=== PATIENT | female | born 1950 | race Caucasian/White ===

== ENCOUNTER 2016-10-10 12:10 | Day surgery (SDC) | payer MEDICARE, OTHER ==
[2016-10-10] MEDS ORDERED: Glycopyrrolate 0.2 MG/ML 2 ML SYRINGE IVPUSH ONE (12:18)
[2016-10-10] MEDS ORDERED: Cyanocobalamin (Vitamin B12) 1,000 MCG/ML SDV IM ONE (12:18)
[2016-10-10] MEDS ORDERED: Lactated Ringers 1,000 ML IV ONE (12:30)
[2016-10-10] MEDS ORDERED: MVI, Adult with Vitamin K 10 ML, Thiamine 200 MG, Chromium/Copper/Mang/Selen/Zn 1 ML in... IV ONE ×4 (13:15)
[2016-10-10] MEDS ORDERED: Propofol 200 MG/20 ML SDV ONE (14:02)
[2016-10-10] MEDS ORDERED: fentaNYL 100 MCG/2 ML SDV ONE (14:03)
[2016-10-10] MEDS ORDERED: Pantoprazole 40 MG Vial IVPUSH ONE (14:14)
[2016-10-10] MEDS ORDERED: Fluconazole/Normal Saline 400 MG in Premix Bag 200 BAG IV ONE (14:30)
[2016-10-10] MEDS ORDERED: Alum Hydrox/Mag Hydrox/Simeth 360 ML, Lidocaine 2% 60 ML PO SCH ×2 (16:00)
[2016-10-10 16:54] VITALS: BP 117/68
--- NOTE | 2016-10-14 14:38 | OR ---
DATE OF PROCEDURE: 10/10/2016 PREOPERATIVE DIAGNOSES: Dysphagia, status post Levy-en-Y gastric bypass with history of possible large foreign body. 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 OPERATIVE PROCEDURE: Upper GI endoscopy. ANESTHESIA: IV sedation. INDICATION FOR PROCEDURE: This is a 66-year-old status post Levy-en-Y gastric bypass, presenting with apparently fish getting caught in her either gastric pouch or her distal esophagus. This happened several days ago and she has been unable to swallow much. In the meantime, plan is to proceed with an upper GI endoscopy with biopsies and/or dilation as indicated. Potential risks including bleeding and perforation were discussed, and the patient wishes to proceed. DETAILS OF PROCEDURE: The patient was taken to the operating room and placed in a left lateral decubitus position. IV sedation was administered, after which the upper GI endoscope was passed orally through the length of the esophagus, through the gastric pouch and gastrojejunostomy roughly 20 cm into the Levy limb. The patient was noted to have no retained foreign body in the esophagus at this time but had a very striking esophagitis with apparent fungal overgrowth circumferentially over the distal 4-5 cm of the esophagus leading up to the area of the gastric pouch. The gastric pouch itself was unremarkable as were the gastrojejunostomy and the visualized portion of the Levy limb. The overall impression was that of severe esophagitis with associated fungal overgrowth. I suspect this was initiated with the food being lodged in that area for a period of time. No biopsy was felt to be warranted and the scope withdrawn, and the procedure then concluded. The patient was taken to the recovery room in satisfactory condition. The patient will be given Protonix 40 mg IV in the recovery room along with Diflucan 400 mg IV piggyback, start this afternoon and then she will be discharged home with Protonix 40 mg q. day x30 days, Mycostatin swish and swallow 5 mL q.i.d. x7 days, along with two ounces of Xylocaine mixed with ounces of Mylanta to take p.r.n. prior to eating. She will be instructed to stay on a liquid diet for 5 days and call if she is not able to maintain adequate oral intake. She will be following up with Mitra Guardado in 1 week. Austin Ford MD /[id number]
== END 2016-10-10 17:25 | disposition home or self-care (01) ==
LOC: JP.SDS 12:10
PROVIDERS: ATTEND Surgery
DX: B37.81 Candidal esophagitis (principal); I10 Essential (primary) hypertension; K21.9 Gastro-esophageal reflux disease without esophagitis; J45.909 Unspecified asthma, uncomplicated; Z88.8 Allergy status to other drugs, medicaments and biological substances; Z98.84 Bariatric surgery status
CPT/HCPCS: 43235; A9270; C9113; J1450; J1642; J2704; J3010; J3411; J3420; J7120

== ENCOUNTER 2016-10-25 09:43 | Day surgery (SDC) | payer MEDICARE, OTHER ==
[~2016-10-25 09:43] MED LIST: Midazolam 1 MG/ML 2 ML SDV ONE; Propofol 200 MG/20 ML SDV ONE; fentaNYL 100 MCG/2 ML SDV ONE
[2016-10-25] MEDS ORDERED: Lactated Ringers 1,000 ML IV ONE (09:45)
[2016-10-25] MEDS ORDERED: MVI, Adult with Vitamin K 10 ML, Thiamine 200 MG, Chromium/Copper/Mang/Selen/Zn 1 ML in... IV ONE ×4 (09:45)
[2016-10-25] MEDS ORDERED: Glycopyrrolate 0.2 MG/ML 2 ML SYRINGE IVPUSH ONE (10:15)
[2016-10-25] MEDS ORDERED: Cyanocobalamin (Vitamin B12) 1,000 MCG/ML SDV IM ONE (10:15)
[2016-10-25] MEDS ORDERED: Fluconazole 100 MG Tab PO ONE (11:53)
[2016-10-25 13:38] VITALS: BP 112/63
--- NOTE | 2016-10-29 13:08 | OR ---
DATE OF PROCEDURE: 10/25/2016 PREOPERATIVE DIAGNOSIS: Dysphagia associated with recent history of distal esophageal ulceration. POSTOPERATIVE DIAGNOSES: 1. Persistent distal esophageal ulcer (markedly improved from previous endoscopy). 2. Mild stricture of gastrojejunostomy. OPERATIVE PROCEDURE: Upper GI endoscopy with: 1. Dilation of gastrojejunostomy (45780). 2. Biopsies of esophageal ulcer (14924). ANESTHESIA: IV sedation. INDICATION FOR PROCEDURE: The patient presents with some persistent dysphagia. She recently was noted to have striking distal esophagitis with yeast overgrowth. She has been on Protonix 40 mg a day and also completed earlier a course of Diflucan. Plan is to proceed with a repeat endoscopy with biopsies or dilation as indicated. Potential risks including bleeding and perforation were discussed, and the patient wishes to proceed. DETAILS OF PROCEDURE: The patient was taken to the operating room and placed in the left lateral decubitus position. IV sedation was administered, after which the upper GI endoscope was passed orally through the length of the esophagus into the gastric pouch and from there roughly 20 cm into the Levy limb. Findings included a normal upper esophagus. At the EG junction, there was a persistent ulcer located, beginning at the esophagogastric junction and extending roughly 2 cm proximally. This was covered with some fibrinous exudate. Possibly, there was some fungal overgrowth. Beyond that, the gastric pouch itself was unremarkable. There was a slight stricturing of the gastrojejunostomy, and the visualized portion of the Levy limb was unremarkable. At this point, the gastrojejunostomy was dilated with a 54-[place] balloon dilator. This did result in some increased luminal diameter. The balloon catheter was then removed, and then biopsies were obtained from the esophageal ulcer to rule out a problem such as Lawrence esophagus. This would also give us some idea whether or not there is some persistent fungal overgrowth. Minimal bleeding from the biopsy site was seen, and the procedure was then concluded. The plan will be to continue the Protonix, and we will give her a course of Diflucan for the next 5 days, after an IV dose was given today. Additionally, she will be set up for followup with Mitra Guardado at [facility] in about 2 weeks. Austin Ford MD /[id number]
== END 2016-10-25 13:55 | disposition home or self-care (01) ==
LOC: JP.SDS 09:43
PROVIDERS: ATTEND Surgery
PROC: 0D768ZZ Dilation of Stomach, Via Natural or Artificial Opening Endoscopic (ICD-10-PCS; principal; 2016-10-25)
PROC: 0DB58ZX Excision of Esophagus, Via Natural or Artificial Opening Endoscopic, Diagnostic (ICD-10-PCS; 2016-10-25)
DX: R13.10 Dysphagia, unspecified (principal); K91.89 Other postprocedural complications and disorders of digestive system; K22.10 Ulcer of esophagus without bleeding; B37.81 Candidal esophagitis
CPT/HCPCS: 43239; 43245; 88305; 88312; A9270; J2250; J2704; J3010; J3411; J3420; J7120

== ENCOUNTER 2020-02-12 13:43 | Emergency (ER) | payer MEDICARE, OTHER ==
[2020-02-12] MEDS ORDERED: ClonazePAM 0.5 MG Tab PO ONE (14:20)
--- NOTE | 2020-02-12 14:20 | EDM.PDOC ---
ED HPI GENERAL MEDICAL PROBLEM - General Chief Complaint: Cardiovascular Problem Stated Complaint: POSSIBLE HEART ATTACK Time Seen by Provider: 02/12/20 13:58 Source of Information: Reports: Patient, Family, RN Notes Reviewed, Other (recent records) History Limitations: Reports: No Limitations - History of Present Illness INITIAL COMMENTS - FREE TEXT/NARRATIVE: Zeina presents today with complaints of high blood pressure and heart rate all morning today. She states she was checking her blood pressure every 5 minutes and it kept saying the heart rate was high and her blood pressure would be high then low. She denies chest pain, SOB, difficulty breathing, dizziness, syncope. Wrist cuff used at home. She denies chest pain, SOB, difficulty breathing, cough, fever, chills, or other concerns. - Related Data Allergies Allergy/AdvReac Type Severity Reaction Status Date / Time amitriptyline Allergy Cannot Verified 02/12/20 13:55 Remember Home Meds: Home Meds ARIPiprazole [Abilify] 15 mg PO DAILY 10/10/16 [History] Acyclovir [Zovirax] 400 mg PO BID 10/10/16 [History] Aspirin [Adult Low Dose Aspirin EC] 81 mg PO DAILY 10/10/16 [History] Cyanocobalamin (Vitamin B-12) [Vitamin B-12] 1,000 mcg BUCCAL DAILY 10/10/16 [History] DULoxetine HCl [Cymbalta] 120 mg PO DAILY 10/10/16 [History] Furosemide [Lasix] 40 mg PO BID 10/10/16 [History] Levothyroxine Sodium [Synthroid] 150 mcg PO QAM 10/10/16 [History] Metolazone [Zaroxolyn] 2.5 mg PO DAILY 10/10/16 [History] Montelukast [Singulair] 10 mg PO BEDTIME 10/10/16 [History] Potassium Chloride [Klor-Con M20] 40 meq PO TID 10/10/16 [History] clonazePAM [Klonopin] 0.5 mg PO BID 10/10/16 [History] lamoTRIgine [Lamictal] 200 mg PO BID 10/10/16 [History] Pantoprazole Sodium [Protonix] 40 mg PO DAILY 10/25/16 [History] Past Medical History HEENT History: Reports: Impaired Vision, Macular Degeneration Other HEENT History: wears glasses; right eye blind, left eye macular degeneration Cardiovascular History: Reports: Heart Failure, Heart Murmur, Hypertension Respiratory History: Reports: Asthma, Pneumonia, Recurrent, Other (See Below) Other Respiratory History: bronchiol cystosis; wears cystic fibrosis vest TID Gastrointestinal History: Reports: Chronic Constipation Genitourinary History: Reports: None CLIENT ADVOCATE History: Reports: Musculoskeletal History: Reports: Neck Pain, Chronic Psychiatric History: Reports: Anxiety, Bipolar, Depression, Psych Hospi talization(s), Schizophrenia, Suicide Attempt Endocrine/Metabolic History: Reports: Hypothyroidism, Vitamin D Deficiency Hematologic History: Reports: B12 Deficiency Immunologic History: Reports: Immunosuppression Oncologic (Cancer) History: Reports: Other (See Below) Other Oncologic History: Follicular lymphoma, non-Hodgkin's Stage III - Infectious Disease History Infectious Disease History: Reports: Chicken Pox, Mumps, Shingles - Past Surgical History HEENT Surgical History: Reports: Laser Surgery, Oral Surgery Respiratory Surgical History: Reports: Other (See Below) GI Surgical History: Reports: Appendectomy, Bariatric Procedure, Cholecystectomy, Colonoscopy, EGD Female Surgical History: Reports: Breast Biopsy, Tubal Ligation, Other (See Below) Musculoskeletal Surgical History: Reports: Carpal Tunnel, Knee Replacement, Other (See Below) Oncologic Surgical History: Reports: Biopsy of Breast, Lumpectomy Dermatological Surgical History: Reports: None Social & Family History - Tobacco Use Smoking Status *Q: Never Smoker - Caffeine Use Caffeine Use: Reports: Tea ED ROS GENERAL - Review of Systems Review Of Systems: See Below Constitutional: Reports: Weakness, Decreased Appetite, Weight Loss. Denies: Fever, Chills, Malaise, Night Sweats, Diaphoresis, Weight Gain HEENT: Reports: No Symptoms Respiratory: Reports: No Symptoms Cardiovascular: Reports: No Symptoms Endocrine: Denies: Polyuria GI/Abdominal: Reports: Abdominal Pain (Chronic abdominal pain which can be cramp like pain at times), Diarrhea, Decreased Appetite, Nausea. Denies: Black Stool, Bloody Stool, Constipation, Difficulty Swallowing, Distension, Hematemesis, Vomiting : Reports: No Symptoms Musculoskeletal: Reports: No Symptoms Skin: Reports: Other (edema and redness to bilateral lower extremities for >14 days) Neurological: Reports: Dizziness, Tremors, Difficulty Walking, Weakness, Other (Tremors for 5 moths). Denies: Confusion, Headache, Numbness, Paresthesia, Seizure, Syncope, Tingling, Trouble Speaking, Change in Speech Psychiatric: Reports: Agitation, Anxiety Hematologic/Lymphatic: Reports: No Symptoms Immunologic: Reports: No Symptoms ED EXAM, GENERAL - Physical Exam Exam: See Below Exam Limited By: No Limitations General Appearance: Alert, WD/WN, No Apparent Distress Eye Exam: Bilateral Eye: EOMI, Normal Inspection, PERRL Ears: Normal External Exam, Normal Canal, Hearing Grossly Normal, Normal TMs Nose: Normal Inspection, Normal Mucosa, No Blood Throat/Mouth: Normal Inspection, Normal Lips, Normal Gums, Normal Oropharynx, Normal Voice, No Airway Compromise, Other (Poor fitting dentures) Head: Atraumatic, Normocephalic Neck: Normal Inspection, Supple, Non-Tender, Full Range of Motion. No: Lymphadenopathy (R), Lymphadenopathy (L) Respiratory/Chest: No Respiratory Distress, Lungs Clear, Normal Breath Sounds, No Accessory Muscle Use, Chest Non-Tender. No: Crackles, Rales, Rhonchi, Wheezing Cardiovascular: Normal Peripheral Pulses, Regular Rate, Rhythm, No Gallop, Systolic Murmur, Other (trace edema bilateral lower extremities) Peripheral Pulses: 2+: Radial (L), Radial (R) GI/Abdominal: Normal Bowel Sounds, Soft, Non-Tender, No Organomegaly, No Distention, No Mass. No: Guarding, Rigid, Rebound, Hernia Back Exam: Normal Inspection. No: CVA Tenderness (R), CVA Tenderness (L) Extremities: Normal Range of Motion, Normal Capillary Refill, Redness Neurological: Alert, Oriented, Normal Cognition, Other (tremors all extremities) Psychiatric: Normal Mood, Anxious, Other Skin Exam: Warm, Dry, Intact, No Rash, Erythema (slight erythema bilateral lower extremities) Lymphatic: No Adenopathy EKG INTERPRETATION EKG Date: 02/12/20 Time: 13:56 Rhythm: NSR Rate (Beats/Min): 70 [place]: Normal P-Wave: Present QRS: Normal ST-T: Normal QT: Normal EKG Interpretation Comments: Frequent artifact due to tremors Course - Vital Signs Last Recorded V/S: Last Vital Signs Temp 35.9 C L 02/12/20 14:07 Pulse 65 02/12/20 17:11 Resp 26 H 02/12/20 16:39 BP 107/51 L 02/12/20 17:11 Pulse Ox 97 02/12/20 17:11 - Orders/Labs/Meds Orders: Active Orders 24 hr Category Date Time Status EKG 12 Lead [EK] Routine Ther 02/12/20 14:13 Ordered Labs: Laboratory Tests 02/12/20 02/12/20 02/12/20 Range/Units 14:34 14:34 14:34 WBC 8.3 (4.5-11.0) K/uL RBC 4.08 (3.30-5.50) M/uL Hgb 12.5 (12.0-15.0) g/dL Hct 38.6 (36.0-48.0) % MCV 95 (80-98) fL MCH 31 (27-31) pg MCHC 32 (32-36) % Plt Count 235 (150-400) K/uL Neut % (Auto) 75 H (36-66) % Lymph % (Auto) 19 L (24-44) % [place] % (Auto) 6 (2-6) % Eos % (Auto) 0 L (2-4) % Baso % (Auto) 0 (0-1) % Sodium 137 L (140-148) mmol/L Potassium 4.1 (3.6-5.2) mmol/L Chloride 102 (100-108) mmol/L Carbon Dioxide 30 (21-32) mmol/L Anion Gap 9.1 (5.0-14.0) mmol/L BUN 10 (7-18) mg/dL Creatinine 1.0 (0.6-1.0) mg/dL Est Cr Clr Drug Dosing 47.10 mL/min Estimated GFR (MDRD) 55 L (>60) Glucose 93 (74-106) mg/dL Calcium 9.6 (8.5-10.1) mg/dL Magnesium 1.7 L (1.8-2.4) mg/dL Total Bilirubin 0.5 (0.2-1.0) mg/dL AST 28 (15-37) U/L ALT 28 (12-78) U/L Alkaline Phosphatase 96 (46-116) U/L Troponin I < 0.017 (0.000-0.056) ng/mL Total Protein 6.5 (6.4-8.2) g/dL Albumin 2.8 L (3.4-5.0) g/dL Globulin 3.7 H (2.3-3.5) g/dL Albumin/Globulin Ratio 0.8 L (1.2-2.2) TSH, Ultra Sensitive 1.448 (0.358-3.740) uIU/mL Urine Color (YELLOW) Urine Appearance (CLEAR) Urine pH (5.0-8.0) Ur Specific [place] (1.008-1.030) Urine Protein (NEGATIVE) mg/dL Urine Glucose (UA) (NEGATIVE) mg/dL Urine Ketones (NEGATIVE) mg/dL Urine Occult Blood (NEGATIVE) Urine Nitrite (NEGATIVE) Urine Bilirubin (NEGATIVE) Urine Urobilinogen (0.2-1.0) EU/dL Ur Leukocyte Esterase (NEGATIVE) Urine RBC (0-5) Urine WBC (0-5) Ur Epithelial Cells Amorphous Sediment Urine Bacteria Urine Mucus 02/12/20 Range/Units 16:27 WBC (4.5-11.0) K/uL RBC (3.30-5.50) M/uL Hgb (12.0-15.0) g/dL Hct (36.0-48.0) % MCV (80-98) fL MCH (27-31) pg MCHC (32-36) % Plt Count (150-400) K/uL Neut % (Auto) (36-66) % Lymph % (Auto) (24-44) % Republic % (Auto) (2-6) % Eos % (Auto) (2-4) % Baso % (Auto) (0-1) % Sodium (140-148) mmol/L Potassium (3.6-5.2) mmol/L Chloride (100-108) mmol/L Carbon Dioxide (21-32) mmol/L Anion Gap (5.0-14.0) mmol/L BUN (7-18) mg/dL Creatinine (0.6-1.0) mg/dL Est Cr Clr Drug Dosing mL/min Estimated GFR (MDRD) (>60) Glucose (74-106) mg/dL Calcium (8.5-10.1) mg/dL Magnesium (1.8-2.4) mg/dL Total Bilirubin (0.2-1.0) mg/dL AST (15-37) U/L ALT (12-78) U/L Alkaline Phosphatase (46-116) U/L Troponin I (0.000-0.056) ng/mL Total Protein (6.4-8.2) g/dL Albumin (3.4-5.0) g/dL Globulin (2.3-3.5) g/dL Albumin/Globulin Ratio (1.2-2.2) TSH, Ultra Sensitive (0.358-3.740) uIU/mL Urine Color Yellow (YELLOW) Urine Appearance Clear (CLEAR) Urine pH >= 9.0 H (5.0-8.0) Ur Specific [place] 1.015 (1.008-1.030) Urine Protein Negative (NEGATIVE) mg/dL Urine Glucose (UA) Negative (NEGATIVE) mg/dL Urine Ketones 15 H (NEGATIVE) mg/dL Urine Occult Blood Negative (NEGATIVE) Urine Nitrite Negative (NEGATIVE) Urine Bilirubin Negative (NEGATIVE) Urine Urobilinogen 0.2 (0.2-1.0) EU/dL Ur Leukocyte Esterase Negative (NEGATIVE) Urine RBC Not seen (0-5) Urine WBC 0-5 (0-5) Ur Epithelial Cells Few Amorphous Sediment Not seen Urine Bacteria Few Urine Mucus Not seen Patient lab work reviewed, no acute findings. Na 137 K 4.1 Mg 1.7 Trop <0.017 Telemetry review shows heart rate of 65 to 70, sinus with artifact at times. UA reviewed, no signs of infection. Meds: Medications Discontinued Medications Generic Name Dose Route Start Last Admin Trade Name Brettq PRN Reason Stop Dose Admin Clonazepam 1 mg 02/12/20 14:20 02/12/20 14:51 Klonopin PO 02/12/20 14:21 1 mg ONETIME ONE Administration - Re-Assessments/Exams Free Text/Narrative Re-Assessment/Exam: 02/12/20 15:31 Patient lab work and vital signs reviewed with patient and her , all their questions were answered. We will collect a urine. Telemetry has no changes, normal sinus with artifact at times. 02/12/20 17:00 Urine completed, no sign of infection. Telemetry shows no changes, normal sinus rhythm. Discussion with patient and her about labs, blood pressure monitoring, c ardiac status. All their questions were answered. Increase clonazepam to 1mg PO twice daily if needed for anxiety. Do not take at HS with evening medications. They will follow up with primary on Saturday. Return for any worsening, issues or concerns. Departure - Departure Time of Disposition: 17:14 Disposition: Home, Self-Care 01 Condition: Good Clinical Impression: Labile hypertension, Anxiety Instructions: Hypertension, Adult, [id number], Living With Anxiety Referrals: PCP,Sia [Primary Care Provider] - Forms: ED Department Discharge Additional Instructions: While in the emergency room your heart rate and blood pressure have been stable. Blood work is negative for any acute findings. Electrolytes are normal. Drink plenty of water to stay hydrated. Do not take blood pressure more then once in a 15 to 30 minute period. Increase clonazepam to 1mg twice per day as needed. Do not take increased dose at bedtime with other medications. Follow up with primary provider on Saturday for follow up. Return to the emergency room for any worsening, issues or concerns. Sepsis Event Note (ED) - Evaluation Sepsis Screening Result: No Definite Risk - Focused Exam Vital Signs: Vital Signs Temp Pulse Resp BP Pulse Ox 02/12/20 17:11 65 107/51 L 97 02/12/20 16:39 65 26 H 110/60 93 L 02/12/20 15:50 67 15 105/60 02/12/20 15:17 69 29 H 107/47 L 99 02/12/20 14:44 84 25 H 119/57 L 98 02/12/20 14:14 69 19 111/51 L 99 02/12/20 14:07 35.9 C L 83 23 H 104/49 L 98 02/12/20 13:48 35.9 C L 83 23 H 104/49 L 98 - My Orders Last 24 Hours: My Active Orders 02/12/20 14:13 EKG 12 Lead [EK] Routine - Assessment/Plan Last 24 Hours: My Active Orders 02/12/20 14:13 EKG 12 Lead [EK] Routine Assessment:: Labile hypertension, Anxiety Plan: While in the emergency room cardiac rhythm, heart rate and blood pressure have been stable. Blood work is negative for any acute findings. Electrolytes are normal. Drink plenty of water to stay hydrated. Do not take blood pressure more then once in a 15 to 30 minute period. Increase clonazepam to 1mg twice per day as needed. Do not take increased dose at bedtime with other medications. Follow up with primary provider on Saturday for follow up. Return to the emergency room for any worsening, issues or concerns.
[2020-02-12 16:40] VITALS: PULSE 65
[2020-02-12 17:12] VITALS: BP 107/51
== END 2020-02-12 17:35 | disposition home or self-care (01) ==
LOC: JP.ED 13:43
DX: F41.9 Anxiety disorder, unspecified (principal); I11.0 Hypertensive heart disease with heart failure; I50.9 Heart failure, unspecified; R60.0 Localized edema; J45.909 Unspecified asthma, uncomplicated; F31.9 Bipolar disorder, unspecified; E03.9 Hypothyroidism, unspecified; Z79.82 Long term (current) use of aspirin; Z79.899 Other long term (current) drug therapy
CPT/HCPCS: 36415; 80053; 81001; 83735; 84443; 84484; 85025; 93005; 99283; A9270; 93010

== ENCOUNTER 2020-02-29 06:18 | Inpatient (IN) | payer MEDICARE, OTHER ==
[2020-02-29] MEDS ORDERED: Cyanocobalamin (Vitamin B12) 1,000 MCG/ML SDV IM ONE (07:00)
[2020-02-29] MEDS ORDERED: Lactated Ringers 1,000 ML IV SCH (07:00)
[2020-02-29] MEDS ORDERED: Glycopyrrolate 0.2 MG/ML 2 ML SDV IVPUSH ONE (07:00)
[2020-02-29] MEDS ORDERED: fentaNYL 100 MCG/2 ML SDV ONE (07:11)
[2020-02-29] MEDS ORDERED: Midazolam 1 MG/ML 2 ML SDV ONE (07:11)
[2020-02-29] MEDS ORDERED: Propofol 200 MG/20 ML SDV ONE (07:11)
[2020-02-29] MEDS ORDERED: MVI, Adult with Vitamin K 10 ML, Thiamine 200 MG, Chromium/Copper/Mang/Selen/Zn 1 ML in... IV ONE ×4 (08:00)
[2020-02-29] MEDS ORDERED: Iopamidol 612 MG/ML 500 ML Multipack Bottle IV ONE (09:36)
[2020-02-29] MEDS ORDERED: Sodium Chloride 0.9% 10 ML SDV FLUSH ONE (09:36)
[2020-02-29] MEDS ORDERED: Sodium Chloride 0.9% 10 ML Syringe FLUSH PRN (09:51)
[2020-02-29] MEDS ORDERED: Iopamidol 612 MG/ML 100 ML Bottle IV PRN (09:51)
--- NOTE | 2020-02-29 10:29 | CT ---
Abdomen Pelvis w Cont CLINICAL HISTORY: SBO COMPARISON: 2013. TECHNIQUE: Axial tomographic images are obtained from the dome of the diaphragm to the pubic symphysis without IV contrast enhancement. No oral contrast was used. Auto dosage reduction and iterative reconstruction techniques employed. FINDINGS: The lung bases show patchy opacities in both lung bases. Some of these are present on prior study. There is some increase in patchy density in the medial segment right middle lobe. Left lower lobe opacity has decreased slightly since prior study. This may represent some chronic infection. Patient has had previous bariatric surgery. There is no significant small bowel distention. There is gas and feces throughout the colon. The liver is free of mass. There is mild intrahepatic ductal prominence. The gallbladder has been removed. The spleen has a normal size and shape. The pancreas shows no mass or inflammatory change. The adrenal glands appear normal bilaterally. The kidneys show no mass, stones or hydronephrosis. Ureters have a normal course and contour. The bladder has a normal appearance. The aorta shows atheromatous plaque without aneurysm. There is no suspicious retroperitoneal adenopathy. There are some dense calcifications in the mid retroperitoneum and pelvis. These may are present calcified lymph nodes or possibly phleboliths. IMPRESSION: Previous bariatric surgery Mild biliary dilatation likely related to previous cholecystectomy No strong evidence to suggest bowel obstruction. Patchy opacities in both lung bases may be related to chronic infection
[2020-02-29] MEDS ORDERED: Dextrose 5%-Lactated Ringers 1,000 ML IV SCH (10:30)
[2020-02-29] MEDS ORDERED: Acetaminophen 325 MG Tab PO PRN (10:44)
[2020-02-29] MEDS ORDERED: Prochlorperazine 10 MG Tab PO PRN (10:45)
[2020-02-29] MEDS: Pantoprazole 40 MG Tab.CR PO SCH (11:21)
[2020-02-29] MEDS: Furosemide 40 MG Tab PO SCH (13:51)
[2020-02-29] MEDS ORDERED: ClonazePAM 0.5 MG Tab PO PRN (16:11)
[2020-02-29] MEDS ORDERED: hydrOXYzine HCl 25 MG Tab PO PRN (16:14)
[2020-02-29] MEDS ORDERED: XOPENEX INH PRN (16:44)
[2020-02-29] MEDS: DULoxetine 30 MG Cap PO SCH (16:53)
[2020-02-29] MEDS: Potassium Chloride 20 MEQ Tab.ER PO SCH ×2 (16:53→22:31)
[2020-02-29] MEDS: ClonazePAM 0.5 MG Tab PO PRN (16:53)
[2020-02-29] MEDS ORDERED: Levalbuterol Tartrate HFA 15 GM Inhaler INH PRN (16:55)
[2020-02-29] MEDS: Acyclovir 200 MG Cap PO SCH (20:00)
[2020-02-29] MEDS: Montelukast 10 MG Tab PO SCH (20:00)
[2020-02-29] MEDS: traZODone 50 MG Tab PO PRN (22:31)
[2020-03-01] MEDS: Potassium Chloride 20 MEQ Tab.ER PO SCH ×4 (06:01→22:31)
[2020-03-01] MEDS ORDERED: Lidocaine 1% with EPINEPHrine 1:100,000 50 ML MDV ONE (06:43)
[2020-03-01] MEDS ORDERED: Meropenem 500 MG SDV ONE (06:43)
[2020-03-01] MEDS ORDERED: Bupivacaine 0.5% 50 ML MDV ONE (06:43)
[2020-03-01] MEDS ORDERED: Dexamethasone 4 MG/ML SDV ONE (07:06)
[2020-03-01] MEDS ORDERED: Propofol 200 MG/20 ML SDV ONE (07:06)
[2020-03-01] MEDS ORDERED: fentaNYL 250 MCG/5 ML SDV ONE (07:06)
[2020-03-01] MEDS ORDERED: Rocuronium 50 MG/5 ML Vial ONE (07:06)
[2020-03-01] MEDS ORDERED: Glycopyrrolate 0.2 MG/ML 5 ML MDV ONE (07:06)
[2020-03-01] MEDS ORDERED: Ondansetron 4 MG/2 ML SDV ONE (07:06)
[2020-03-01] MEDS ORDERED: Neostigmine Methylsulfate 1 MG/ML 5 ML Syringe ONE (07:06)
[2020-03-01] MEDS ORDERED: Magnesium Sulfate 2 GM in Sodium Chloride 0.9% 250 ML IV ONE (07:30)
[2020-03-01] MEDS ORDERED: Ketamine 500 MG/5 ML MDV IV SCH (07:30)
[2020-03-01] MEDS ORDERED: cefOXitin 2 GM in Sodium Chloride 0.9% 50 ML IV ONE (07:30)
[2020-03-01] MEDS ORDERED: Ketamine 50 MG in Sodium Chloride 0.9% 49.5 ML IV SCH (07:30)
[2020-03-01] MEDS ORDERED: Magnesium Sulfate 1.8 GM in Sodium Chloride 0.9% 100 ML IV SCH (07:30)
[2020-03-01] MEDS ORDERED: ARNUITY ELLIPTA INH SCH (09:00)
[2020-03-01] MEDS ORDERED: INCRUSE ELLIPTA INH SCH (09:00)
[2020-03-01] MEDS ORDERED: Lactated Ringers 1,000 ML ONE (09:03)
[2020-03-01] MEDS ORDERED: HYDROmorphone/Normal Saline 15 MG/30 ML PCA IV PRN (09:08)
[2020-03-01] MEDS ORDERED: Naloxone 0.4 MG/ML SDV IVPUSH PRN (09:08)
[2020-03-01] MEDS ORDERED: Naloxone 0.4 MG/ML SDV ONE (09:21)
[2020-03-01] MEDS ORDERED: Ondansetron 4 MG/2 ML SDV IVPUSH ONE (09:56)
[2020-03-01] MEDS ORDERED: Dextrose 5%-Lactated Ringers 1,000 ML IV SCH ×2 (11:15)
[2020-03-01] MEDS ORDERED: Acetaminophen 500 MG Tab PO PRN (12:00)
[2020-03-01] MEDS ORDERED: Calcium Gluconate 10% 1 GM/10 ML SDV IVPUSH PRN (12:00)
[2020-03-01] MEDS ORDERED: Metoclopramide 10 MG/2 ML SDV IVPUSH PRN (12:00)
[2020-03-01] MEDS ORDERED: hydrOXYzine HCL 100 MG/2 ML SDV IM PRN (12:00)
[2020-03-01] MEDS ORDERED: Ondansetron 4 MG/2 ML SDV IVPUSH PRN (12:00)
[2020-03-01] MEDS ORDERED: Labetalol 20 MG/4 ML Syringe IVPUSH PRN (12:00)
[2020-03-01] MEDS ORDERED: Naloxone 0.4 MG/ML SDV IV PRN (12:00)
[2020-03-01] MEDS ORDERED: diphenhydrAMINE 50 MG/ML SDV IVPUSH PRN (12:00)
[2020-03-01] MEDS: Furosemide 40 MG Tab PO SCH ×2 (13:03→13:08)
[2020-03-01] MEDS: Pantoprazole 40 MG Tab.CR PO SCH (13:05)
[2020-03-01] MEDS: lamoTRIgine 100 MG, lamoTRIgine 50 MG PO SCH ×2 (13:05)
[2020-03-01] MEDS: Acyclovir 200 MG Cap PO SCH ×2 (13:05→20:36)
[2020-03-01] MEDS: DULoxetine 30 MG Cap PO SCH ×2 (13:06→17:49)
[2020-03-01] MEDS: Acetaminophen 500 MG Tab PO SCH ×2 (13:08→22:31)
[2020-03-01] MEDS: ClonazePAM 0.5 MG Tab PO PRN (13:12)
[2020-03-01] MEDS: cefOXitin 2 GM in Sodium Chloride 0.9% 50 ML IV SCH ×2 (14:10→20:39)
[2020-03-01] MEDS: Tiotropium Bromide 4 GM Inhalation Spray INH SCH (16:05)
[2020-03-01] MEDS: Mometasone Furoate Powder 220 MCG/Puff 14 Dose Inhaler INH SCH (16:06)
[2020-03-01] MEDS: MVI, Adult with Vitamin K 10 ML, Thiamine 200 MG, Chromium/Copper/Mang/Selen/Zn 1 ML in... IV SCH ×4 (17:50)
[2020-03-01] MEDS: Montelukast 10 MG Tab PO SCH (20:36)
[2020-03-01] MEDS: traZODone 50 MG Tab PO PRN (22:31)
[2020-03-02] MEDS: cefOXitin 2 GM in Sodium Chloride 0.9% 50 ML IV SCH (02:18)
[2020-03-02] MEDS ORDERED: Iopamidol 612 MG/ML 50 ML SDV PO STA (02:26)
[2020-03-02] MEDS: Potassium Chloride 20 MEQ Tab.ER PO SCH ×4 (05:53→21:01)
[2020-03-02] MEDS: Acetaminophen 500 MG Tab PO SCH ×3 (05:53→22:02)
[2020-03-02] MEDS ORDERED: diphenhydrAMINE 25 MG Cap PO PRN (07:33)
[2020-03-02] MEDS: Pantoprazole 40 MG Tab.CR PO SCH (07:55)
[2020-03-02] MEDS: DULoxetine 30 MG Cap PO SCH ×2 (07:56→16:59)
[2020-03-02] MEDS: Furosemide 40 MG Tab PO SCH ×2 (07:56→14:31)
[2020-03-02] MEDS: Metolazone 2.5 MG Tab PO SCH (08:00)
[2020-03-02] MEDS: lamoTRIgine 100 MG, lamoTRIgine 50 MG PO SCH ×2 (08:00)
[2020-03-02] MEDS: Acyclovir 200 MG Cap PO SCH ×2 (08:00→21:01)
[2020-03-02] MEDS: Dextrose 5%-Lactated Ringers 1,000 ML IV SCH (08:06)
--- NOTE | 2020-03-02 09:06 | CR ---
UGI Limited HISTORY: Postbariatric surgery FINDINGS: Patient swallowed water-soluble contrast. Upright views of the abdomen show no evidence of extravasation or obstruction. IMPRESSION: Status post bariatric surgery No extravasation or obstruction seen
[2020-03-02] MEDS: Mometasone Furoate Powder 220 MCG/Puff 14 Dose Inhaler INH SCH (11:07)
[2020-03-02] MEDS: Tiotropium Bromide 4 GM Inhalation Spray INH SCH (11:07)
--- NOTE | 2020-03-02 11:08 | PN ---
DATE OF SERVICE: 03/02/2020 SUBJECTIVE: Zeina is postop day #1. Her pain has been controlled. Vital signs have been stable. Oral intake 1530. Urine output 1540 via Frazier catheter. She has no questions or concerns with exception of she has chronic itching, which has been worked up by several other providers. OBJECTIVE: GENERAL: Zeina Woods is a 69-year-old female, alert, and orientated. VITAL SIGNS: TPR at 0648; 97.5, 68, 18. Blood pressure 96/45. HEENT: Negative. NECK: Supple. HEART: Regular rate and rhythm. LUNGS: Clear. ABDOMEN: Dressings dry and intact. Abdominal binder is on. EXTREMITIES: Without peripheral edema. ASSESSMENT: 1. Exploratory laparotomy with: a. Revision of jejunojejunostomy component of the Levy-en-Y gastric bypass surgery. b. Repair of small bowel at the site of adhesions to intraperitoneal mesh. c. Removal of intraperitoneal mesh. d. Placement of Interceed mesh. Postoperative Diagnoses: 1. a. Partial small bowel obstruction secondary to adhesions and stricture at the jejunojejunostomy. b. Small bowel densely adherent to intraperitoneal mesh. Date of surgical procedure: 03/01/2020. Surgeon: Austin Ford MD. 1. Upper endoscopy, 02/29/2020. PLAN: 1. Step 2 gastric bypass diet without cereal. 2. Discontinue Frazier catheter. 3. Decrease IV of D5 LR to 80 mL per hour. 4. Benadryl 25 mg every 4 hours p.r.n. itching. 5. Zofran ODT 4 mg p.o. q.4 hours p.r.n. nausea and vomiting. 6. We will evaluate p.r.n. or in a.m. Mitra Guardado PA-C /[id number]
[2020-03-02] MEDS: Cyclobenzaprine 10 MG Tab PO PRN (12:20)
[2020-03-02] MEDS: [UNRECOGNIZED DRUG - OTHER] INH SCH (13:35)
[2020-03-02] MEDS: UMECLIDINIUM INH SCH (13:36)
[2020-03-02] MEDS: ClonazePAM 0.5 MG Tab PO PRN (14:33)
[2020-03-02] MEDS: MVI, Adult with Vitamin K 10 ML, Thiamine 200 MG, Chromium/Copper/Mang/Selen/Zn 1 ML in... IV SCH ×4 (16:59)
[2020-03-02] MEDS: Montelukast 10 MG Tab PO SCH (21:01)
[2020-03-02] MEDS: traZODone 50 MG Tab PO PRN (22:02)
[2020-03-03] MEDS: Dextrose 5%-Lactated Ringers 1,000 ML IV SCH ×2 (01:04→13:34)
[2020-03-03] MEDS: Potassium Chloride 20 MEQ Tab.ER PO SCH ×5 (05:47→22:44)
[2020-03-03] MEDS: Acetaminophen 500 MG Tab PO SCH ×3 (05:47→21:31)
[2020-03-03] MEDS: UMECLIDINIUM INH SCH (07:02)
[2020-03-03] MEDS: [UNRECOGNIZED DRUG - OTHER] INH SCH (07:02)
[2020-03-03] MEDS: Pantoprazole 40 MG Tab.CR PO SCH (07:24)
[2020-03-03] MEDS: Furosemide 40 MG Tab PO SCH ×2 (07:25→13:35)
[2020-03-03] MEDS: DULoxetine 30 MG Cap PO SCH ×2 (07:25→16:28)
--- NOTE | 2020-03-03 08:43 | PN ---
DATE OF SERVICE: 03/03/2020 SUBJECTIVE: Zenia's vital signs have been stable, up ambulating. Reports pain is controlled. Oral intake 1550. Urine output 1805. REVIEW OF SYSTEMS: Remainder of review of systems negative for any pertinent positives and negatives. OBJECTIVE: GENERAL: Zeina Woods is a 69-year-old female. VITAL SIGNS: TPR at 0653; 96.1, 65, 16. Blood pressure 94/77. HEENT: Negative. NECK: Supple. HEART: Regular rate and rhythm. LUNGS: Clear. ABDOMEN: Dressing dry and intact. Aquacel on and abdominal binder is on. EXTREMITIES: Without peripheral edema. ASSESSMENT: Exploratory laparotomy with; 1. Revision of the jejunojejunostomy component of the Levy-en-Y gastric bypass surgery. 2. Repair of small bowel at site of adhesions to intraperitoneal mesh. 3. Removal of intraperitoneal mesh. 4. Placement of Interceed mesh. POSTOPERATIVE DIAGNOSES: 1. Partial small-bowel obstruction secondary to adhesions and stricture at the jejunojejunostomy. 2. Small bowel densely adherent to intraperitoneal mesh. Date of surgical procedure 03/01/2020. Surgeon: Austin Ford MD. Upper endoscopy, 02/29/2020. PLAN: 1. Dulcolax tabs 10 mg b.i.d. orally. 2. Colace 100 mg b.i.d. orally. 3. Dilaudid 2 to 4 mg p.o. every 4 hours p.r.n. pain. 4. Discontinue BOTTLE SELECTOR. 5. Discontinue continuous pulse ox. 6. Step 3 gastric bypass diet. 7. Continue use of incentive spirometer. 8. We will evaluate p.r.n. or in a.m. Mitra Guardado PA-C /[id number]
[2020-03-03] MEDS ORDERED: Cyanocobalamin (Vitamin B12) 1,000 MCG/ML SDV IM ONE (09:00)
[2020-03-03] MEDS: Acyclovir 200 MG Cap PO SCH ×2 (09:55→21:36)
[2020-03-03] MEDS: Docusate Sodium 100 MG Cap PO SCH ×2 (10:00→21:30)
[2020-03-03] MEDS: lamoTRIgine 100 MG, lamoTRIgine 50 MG PO SCH ×2 (10:00)
[2020-03-03] MEDS: Bisacodyl 5 MG Tab PO SCH ×2 (10:00→21:30)
[2020-03-03] MEDS: Cyclobenzaprine 10 MG Tab PO PRN ×2 (10:40→17:07)
[2020-03-03] MEDS: ClonazePAM 0.5 MG Tab PO PRN ×2 (10:40→17:07)
[2020-03-03] MEDS: HYDROmorphone 2 MG Tab PO PRN ×3 (10:43→21:27)
[2020-03-03] MEDS ORDERED: MVI, Adult with Vitamin K 10 ML, Thiamine 200 MG, Chromium/Copper/Mang/Selen/Zn 1 ML in... IV SCH ×4 (16:00)
[2020-03-03] MEDS: traZODone 50 MG Tab PO PRN (21:27)
[2020-03-03] MEDS: Montelukast 10 MG Tab PO SCH (21:33)
[2020-03-04] MEDS: Ondansetron 4 MG Tab.DIS PO PRN ×2 (03:41→11:25)
[2020-03-04] MEDS: Dextrose 5%-Lactated Ringers 1,000 ML IV SCH (04:59)
[2020-03-04] MEDS: Potassium Chloride 20 MEQ Tab.ER PO SCH ×4 (06:39→21:50)
[2020-03-04] MEDS: Acetaminophen 500 MG Tab PO SCH ×3 (06:40→21:51)
[2020-03-04] MEDS: [UNRECOGNIZED DRUG - OTHER] INH SCH (07:03)
[2020-03-04] MEDS: UMECLIDINIUM INH SCH (07:04)
[2020-03-04] MEDS: Pantoprazole 40 MG Tab.CR PO SCH (07:38)
[2020-03-04] MEDS: Furosemide 40 MG Tab PO SCH ×2 (07:39→15:00)
[2020-03-04] MEDS: DULoxetine 30 MG Cap PO SCH ×2 (07:39→15:01)
[2020-03-04] MEDS ORDERED: Sodium Chloride 0.9% 10 ML Syringe IV SCH (09:15)
[2020-03-04] MEDS: Metolazone 2.5 MG Tab PO SCH (09:37)
[2020-03-04] MEDS: Docusate Sodium 100 MG Cap PO SCH ×2 (09:37→21:48)
[2020-03-04] MEDS: Acyclovir 200 MG Cap PO SCH ×2 (09:37→21:50)
[2020-03-04] MEDS: Bisacodyl 5 MG Tab PO SCH ×2 (09:37→21:49)
[2020-03-04] MEDS: lamoTRIgine 100 MG, lamoTRIgine 50 MG PO SCH ×2 (09:37)
[2020-03-04] MEDS: HYDROmorphone 2 MG Tab PO PRN ×3 (11:25→21:52)
[2020-03-04] MEDS: ClonazePAM 0.5 MG Tab PO PRN ×2 (11:25→21:51)
--- NOTE | 2020-03-04 17:56 | PN ---
DATE OF SERVICE: 03/04/2020 The patient is status post open revision of Levy-en-Y jejunojejunostomy and removal of intraperitoneal mesh on 03/01. Clinically, she is still little bit unstable. She has not moved her bowels as of yet and we will continue working on bowel stimulation. She has been unsteady in terms of walking and we will have nursing walk with her 6 times a day and have PT see the patient daily as well. Otherwise, we will saline lock the IV as oral intake was fairly good yesterday. Austin Ford MD /[id number]
[2020-03-04] MEDS: Montelukast 10 MG Tab PO SCH (21:50)
[2020-03-05] MEDS: Potassium Chloride 20 MEQ Tab.ER PO SCH ×2 (05:51→09:16)
[2020-03-05] MEDS: Acetaminophen 500 MG Tab PO SCH (06:05)
[2020-03-05] MEDS: UMECLIDINIUM INH SCH (07:24)
[2020-03-05] MEDS: [UNRECOGNIZED DRUG - OTHER] INH SCH (07:24)
[2020-03-05] MEDS: ClonazePAM 0.5 MG Tab PO PRN (07:32)
[2020-03-05] MEDS: Furosemide 40 MG Tab PO SCH (07:32)
[2020-03-05] MEDS: Pantoprazole 40 MG Tab.CR PO SCH (07:32)
[2020-03-05] MEDS: DULoxetine 30 MG Cap PO SCH (07:32)
[2020-03-05] MEDS: HYDROmorphone 2 MG Tab PO PRN (09:15)
[2020-03-05] MEDS: Acyclovir 200 MG Cap PO SCH (09:16)
[2020-03-05] MEDS: lamoTRIgine 100 MG, lamoTRIgine 50 MG PO SCH ×2 (09:16)
[2020-03-05] MEDS: Docusate Sodium 100 MG Cap PO SCH (09:16)
[2020-03-05] MEDS: Bisacodyl 5 MG Tab PO SCH (09:16)
[2020-03-05] MEDS: Ondansetron 4 MG Tab.DIS PO PRN (09:56)
[2020-03-05 11:59] VITALS: BP 132/65; PULSE 77
--- NOTE | 2020-03-06 15:27 | CONS ---
DATE OF SERVICE: 03/06/2020 REFERRING PHYSICIAN: Austin Ford MD CONSULTING PHYSICIAN: Rell Blake MD REASON FOR CONSULTATION: Evaluation after revision JJ. HISTORY OF PRESENT ILLNESS: A pleasant 69-year-old female who underwent revision of her jejunojejunal anastomosis and repair of mesh on 03/01/2020. The patient is doing well at this point. Her pain is well controlled. She has no nausea, vomiting, shortness of breath, or chest pain. She has pain which is 1 to 2/10. No specific concerns at this time. PAST MEDICAL HISTORY: History of nodular lymphoma non-Hodgkin's, diastolic heart failure, bradycardia, hypertension, syncope, history of SVT, history of tachy-marisa syndrome, bronchiectasis, pulmonary nodule, COPD, hypothyroidism, , chronic constipation, gastritis, esophageal reflux, diverticulosis, status post Levy-en-Y, knee replacement, esotropia, vitreous floater, presbyopia, chronic dry eyes, histoplasmosis, chronic psychiatric illnesses, history of appendectomy, history of cholecystectomy, history of tubal ligation, multiple endoscopies. REVIEW OF SYSTEMS: GENERAL: Appropriate for condition. HEENT: The patient wears glasses. CARDIOVASCULAR: Diastolic congestive heart failure which she is doing well with. RESPIRATORY: History of COPD. GASTROINTESTINAL: JJ revision as above. GENITOURINARY: No dysuria. NEUROLOGICAL: No psych or gross depression at this time. The remainder of review of systems was reviewed and is negative. PHYSICAL EXAMINATION: VITAL SIGNS: Stable. HEENT: Pupils are equal. NECK: Supple. LUNGS: Clear. CARDIOVASCULAR: Regular rhythm and rate. RESPIRATORY: Lungs clear to auscultation bilaterally. ABDOMEN: Incision healing well. EXTREMITIES: Full range of motion. NEUROLOGICAL: Oriented x3. PSYCHIATRIC: No gross depression. ASSESSMENT: Status post revision JJ. PLAN: Continue to advance diet. Continue same pain medication. No specific concerns at this time. Rell Blake MD /[id number]
--- NOTE | 2020-03-08 15:53 | OR ---
DATE OF PROCEDURE: 03/01/2020 SURGEON: Austin Ford MD PREOPERATIVE DIAGNOSIS: Partial small bowel obstruction. POSTOPERATIVE DIAGNOSES: 1. Partial small bowel obstruction secondary to adhesions and stricture at jejunojejunostomy. 2. Small bowel densely adherent to intraperitoneal mesh. OPERATIVE PROCEDURES: Exploratory laparotomy with lysis of extensive adhesions: 1. Revision of jejunojejunostomy component of Levy-en-Y gastric bypass (85579). 2. Repair of small bowel site of adherence to intraperitoneal mesh (96890). 3. Removal of intraperitoneal mesh (59409). 4. Placement of Interceed mesh to limit recurrent adhesion formation between the abdominopelvic wall and underlying viscera (11742). ANESTHESIA: General. INDICATIONS FOR PROCEDURE: This is a 69-year-old status post previous Levy-en-Y gastric bypass, presenting with postprandial crampy abdominal pain consistent with a partial small bowel obstruction. Plan is to proceed with exploratory laparotomy with lysis of adhesions and release of small bowel obstruction and bowel resection as indicated. Potential risks of the procedure including bleeding and infection problems with the bowel obstruction recurring, leaks from any GI tract closures were all reviewed along with the remote possibility of cardiopulmonary, septic, or hemorrhagic complications leading to , and the patient wishes to proceed. DETAILS OF PROCEDURE: The patient was taken to the operating room, and after general endotracheal anesthesia was induced, a Frazier catheter inserted, and the abdomen prepped and draped. A midline incision from the umbilicus to roughly handsbreadth toward the xiphoid was made and carried down through the skin, subcutaneous tissue, and fascia. Upon entering peritoneal cavity, quite a bit in the way of adhesions were encountered, fresh adhesions were taken down. Subsequently, small bowel could better be sorted out. The patient had an obvious stricture where the Levy limb entered the jejunojejunostomy. Additionally, there was some dense adhesions between the pre-existing mesh and the Levy limb more proximally. While that was taken down, there was significant damage to the source of the Levy limb at that level which was then controlled with transversely oriented WINSTON staple line, thus, repairing that. This was also subsequently reinforced with a coating of fibrin sealant. The mesh was felt to be at significant risk for infection at this point, and the previously placed intraperitoneal mesh was then removed. The point where the small bowel entered the jejunojejunostomy, i.e., the end of Levy limb was divided and a section of this was resected. The jejunojejunostomy was then reconstructed roughly 20 cm distal to the original point of the anastomosis with a side-to- side enteroenterostomy with an internal firing of the Endo-WINSTON 16 mm stapler followed by a 30 mm internal firing. Common opening was then closed transversely with the WINSTON stapler as well. The angles of anastomosis were reinforced with some 3-0 Vicryl stitch and mesenteric defect then approximated with 2-0 silk stitch. No further problems were noted. At this point, the abdomen was irrigated with antibiotic-containing saline solution. Interceed mesh was then placed across the area of the incision, from there down toward the pelvis to displace those surfaces from the underlying viscera to limit recurrent adhesion formation. The midline fascia was then approximated with #2 Vicryl stitch, the subcutaneous tissue with 2 layers of 3-0 and 4-0 Vicryl stitch deep, and then alexx for the skin. Prior to closure, bilateral transversus abdominis plane blocks were placed, and the incision was anesthetized with 0.5% Marcaine mixed with lidocaine. The patient was taken to the recovery room in satisfactory condition. There were no other complications. Austin Ford MD /[id number]
--- NOTE | 2020-03-08 16:32 | OR ---
DATE OF PROCEDURE: 02/29/2020 SURGEON: Austin Ford MD PREOPERATIVE DIAGNOSIS: Postprandial abdominal. POSTOPERATIVE DIAGNOSIS: Postprandial abdominal pain with normal upper gastrointestinal endoscopic examination suggestive of partial small bowel obstruction. OPERATIVE PROCEDURE: Upper gastrointestinal endoscopy. ANESTHESIA: IV sedation. INDICATION FOR PROCEDURE: This is a 69-year-old female presenting with some postprandial abdominal pain. On questioning the patient preoperatively, I have some suspicion regarding small bowel obstruction, but to rule out an upper GI endoscopic pathology, the patient is to undergo the upper endoscopy with biopsies and/or dilation as indicated. Potential risks including bleeding and perforation were discussed, and the patient wishes to proceed. DETAILS OF THE PROCEDURE: The patient was taken to the operating room and placed in a left lateral decubitus position. IV sedation was administered, after which the upper GI endoscope was passed orally through the length of the esophagus into the gastric pouch, and from there, through the gastrojejunostomy, roughly 20 cm into the Levy limb. Overall, this examination was entirely normal. There were no areas of significant inflammation and no areas of stricturing. Given this, the scope was then withdrawn. The above findings reconfirmed. The procedure was then concluded. Given the above findings, the patient almost certainly by clinical history has a partial small bowel obstruction related to Levy-en-Y gastric bypass status and this was discussed with the patient and her . She will be admitted overnight for hydration, and the above plan is to proceed with exploration tomorrow for correction of the small bowel obstruction. Austin Ford MD /[id number]
--- NOTE | 2020-03-09 15:53 | DISCH ---
FINAL DIAGNOSES: 1. Partial small bowel obstruction secondary to adhesions and stricture at jejunojejunostomy. 2. Small bowel densely adherent to previously placed intraperitoneal mesh. 3. Bariatric surgery status (Levy-en-Y gastric bypass on 10/2009). 4. Schizoaffective disorder, bipolar type, with probable early dementia. 5. History of non-Hodgkin's lymphoma. 6. History of anxiety and depression. 7. History of treated hypothyroidism. 8. History of asthma. 9. General deconditioning. OPERATIVE PROCEDURE: 1. This was done on 02/29/2020, upper GI endoscopy. 2. On 03/01/2020, exploratory laparotomy with: a. Revision of jejunojejunostomy component of Levy-en-Y gastric bypass. b. Repair of small bowel at the site of adherence to intraperitoneal mesh. c. Removal of intraperitoneal mesh. d. Placement of Interceed mesh to limit recurrent adhesion formation between pelvic and abdominal wall and underlying viscera. SUMMARY: This is a 69-year-old status post Levy-en-Y gastric bypass in 2009, presenting with postprandial signs of dysphagia and upper abdominal pain. On the day of admission, the patient underwent upper GI endoscopy which was entirely normal from the gastric bypass standpoint. Based on her history, it appears she most likely had a partial small bowel obstruction. Given this, she was admitted for hydration and underwent exploratory laparotomy the next day with the above-noted findings. Postoperatively, she had a little slow down, but the patient was moving adequately and moving her bowels, eating satisfactorily. Her hospitalization was extended somewhat due to generalized deconditioning, waiting for her to get strong enough to go home. She will be going home on her usual medications plus Tylenol as needed for pain. Followup will be with [facility], on 03/14/2020.
== END 2020-03-05 13:30 | disposition home or self-care (01) | DRG 330 ==
LOC: JP.SDS 06:18 → JP.SDSSCHI 06:18 → JP.MS 08:20 → EDSTATUS 09:30 → JP.MS 03-04 09:53
PROVIDERS: ADMIT Surgery; ATTEND Surgery
PROC: 0DJ08ZZ Inspection of Upper Intestinal Tract, Via Natural or Artificial Opening Endoscopic (ICD-10-PCS; 2020-02-29)
PROC: 0D180Z8 Bypass Small Intestine to Small Intestine, Open Approach (ICD-10-PCS; principal; 2020-03-01)
PROC: 0WCG0ZZ Extirpation of Matter from Peritoneal Cavity, Open Approach (ICD-10-PCS; 2020-03-01)
PROC: 3E0M05Z Introduction of Adhesion Barrier into Peritoneal Cavity, Open Approach (ICD-10-PCS; 2020-03-01)
DX: K95.89 Other complications of other bariatric procedure (principal); K56.51 Intestinal adhesions [bands], with partial obstruction; K21.9 Gastro-esophageal reflux disease without esophagitis; K59.09 Other constipation; K29.70 Gastritis, unspecified, without bleeding; Z20.828 Contact with and (suspected) exposure to other viral communicable diseases; K57.90 Diverticulosis of intestine, part unspecified, without perforation or abscess without bleeding; Z96.659 Presence of unspecified artificial knee joint; H50.00 Unspecified esotropia; H43.399 Other vitreous opacities, unspecified eye; H52.4 Presbyopia; H04.123 Dry eye syndrome of bilateral lacrimal glands; Z90.49 Acquired absence of other specified parts of digestive tract
CPT/HCPCS: 36415; 74177; 74177-26; 74240; 74240-26; 80048; 80053; 83735; 83880; 84100; 84443; 85025; 85027; 88300; 88305; 88307; 94640; 94762; 97110-GP; 97162-GP; 97530-GP; A9270-GY; J0171; J0694; J1100; J1170; J2020; J2185; J2250; J2310; J2405; J2704; J2710; J2795; J3010; J3410; J3411; J3420; J3475; J3490; J7050; J7120; J7121; Q9967; U0002

== ENCOUNTER 2020-06-14 07:45 | Day surgery (SDC) | payer MEDICARE, OTHER ==
[2020-06-14] MEDS ORDERED: Dextrose 5%-Lactated Ringers 1,000 ML IV SCH (08:00)
[2020-06-14] MEDS ORDERED: Midazolam 1 MG/ML 2 ML SDV ONE (08:01)
[2020-06-14] MEDS ORDERED: Propofol 200 MG/20 ML SDV ONE (08:01)
[2020-06-14] MEDS ORDERED: fentaNYL 100 MCG/2 ML SDV ONE (08:01)
[2020-06-14] MEDS ORDERED: Meropenem 500 MG in Sodium Chloride 0.9% 50 ML IV ONE (10:00)
[2020-06-14 11:55] VITALS: BP 102/57; PULSE 64
--- NOTE | 2020-06-27 09:24 | OR ---
DATE OF PROCEDURE: 06/14/2020 SURGEON: Austin Ford MD PREOPERATIVE DIAGNOSES: 1. History of dysphagia and reflux symptoms status post Levy-en-Y gastric bypass. 2. Rule out eosinophilic esophagitis. 3. History of colon polyps. POSTOPERATIVE DIAGNOSES: 1. History of dysphagia and reflux symptoms with minimal gross esophagitis, status post Levy-en-Y gastric bypass. 2. Rule out eosinophilic esophagitis. 3. History of colon polyps with 3 recurrent colon polyps. OPERATIVE PROCEDURES: 1. Esophagogastroduodenoscopy with: a. Three levels with biopsies of esophagus to rule out eosinophilic esophagitis. 2. Colonoscopy with: a. Polypectomy by cold biopsy forceps. b. Polypectomy by snare technique x2. ANESTHESIA: IV sedation. INDICATIONS FOR PROCEDURE: A 69-year-old female presenting with some dysphagia status post Levy-en-Y gastric bypass. There has been some suggestion of possibility of eosinophilic esophagitis, so a minimum three-level distal, middle, and proximal esophageal biopsies will be obtained to sort out that diagnostic question. Otherwise, the patient has history of previous colon polyps, and plan is to proceed with colonoscopy with biopsies and/or polypectomy as indicated. Potential risks including bleeding and perforation were discussed and the patient wishes to proceed. DETAILS OF PROCEDURE: The patient was taken to the operating room and placed in a left lateral decubitus position. IV sedation was administered after which the upper GI endoscope was passed orally through the length of the esophagus into the gastric pouch and from there through the gastrojejunostomy roughly 20 cm into the Elvy limb. Overall, the findings showed essentially no gross inflammation of the esophagus, EG junction area, or gastrojejunostomy. There were no areas of stricturing as well. At this point then, biopsies were obtained from the distal most esophagus, the mid esophagus, and proximal esophagus, all sent as separate specimens to help delineate the possibility of eosinophilic esophagitis. Scope was then withdrawn and the upper endoscopy then concluded. Attention was taken to the colonoscopy. Initial digital rectal exam was performed and was unremarkable. Colonoscope was then passed into the rectum with retroflexion revealing uncomplicated hemorrhoidal columns. Scope was then passed to the level of the cecum. The prep was quite good with only a small amount of liquid stool present. In the ascending colon, a very small polyp was present measuring around 2 mm. This was removed in a standard technique by means of a cold biopsy forceps. Minimal bleeding from the biopsy site was seen. There were then 2 polyps [id number] in the sigmoid colon at 30 cm from the dentate line. These were reached, encircled, and removed by means of the cautery snare technique and sent for histologic evaluation. Good hemostasis of the polypectomy site was seen and the procedure was then concluded. The patient will be following up with Charu Drew MD, at the [facility] in [place] in 2 to 3 weeks. If the biopsies are consistent with eosinophilic esophagitis, standard treatment for that would be instituted. Otherwise, assuming that at least 1 of the polyps is adenomatous, the patient should have a followup colonoscopy in 3 years. Austin Ford MD /[id number]
== END 2020-06-14 12:27 | disposition home or self-care (01) ==
LOC: JP.SDS 07:45
PROVIDERS: ATTEND Surgery
DX: Z12.11 Encounter for screening for malignant neoplasm of colon (principal); D12.5 Benign neoplasm of sigmoid colon; D12.2 Benign neoplasm of ascending colon; K21.9 Gastro-esophageal reflux disease without esophagitis; K64.9 Unspecified hemorrhoids; K22.70 Barrett's esophagus without dysplasia; J45.909 Unspecified asthma, uncomplicated; Z88.8 Allergy status to other drugs, medicaments and biological substances; Z98.84 Bariatric surgery status; Z98.0 Intestinal bypass and anastomosis status
CPT/HCPCS: 43239; 45380; 45385; 88305; J1642; J2185; J2250; J2704; J3010; J7050; J7121

== ENCOUNTER 2020-11-30 09:35 | Emergency (ER) | payer MEDICARE, OTHER ==
[2020-11-30] MEDS ORDERED: Sodium Chloride 0.9% 10 ML Syringe FLUSH PRN (10:51)
--- NOTE | 2020-11-30 10:57 | EDM.PDOC ---
ED HPI GENERAL MEDICAL PROBLEM - General Chief Complaint: Neuro Symptoms/Deficits Stated Complaint: POSSIBLE STROKE Time Seen by Provider: 11/30/20 10:35 Source of Information: Reports: Patient, Family, Old Records, RN History Limitations: Reports: No Limitations - History of Present Illness INITIAL COMMENTS - FREE TEXT/NARRATIVE: 70 yo female is brought in by her this morning for weakness. He thought she had either a TIA or CVA. Not able to walk like normal. Lives at home with her . Presumably has Parkinson's and her meds for that were recently stopped after a 2 week taper due to medication side effects. Has not gotten worse through the taper. Her legs are both more swollen and red than normal. No fever reported at home. Was having a hard time talking at home and thought she had a facial droop. These neuro changes are better now, is still weak. Onset: Today, Sudden Onset Date: 11/30/20 Duration: Hour(s):, Waxing/Waning Location: Reports: Generalized Quality: Reports: Other (pain not reported) Severity: Moderate Improves with: Reports: Other (unknown) Worsens with: Reports: Other (unsure) Context: Reports: Other (See HPI) Associated Symptoms: Reports: Malaise, Weakness. Denies: Chest Pain, Cough, Fever/Chills, Headaches, Nausea/Vomiting, Shortness of Breath, Syncope Treatments SIGNAL WIRER: Reports: Other (see below) (none) Back Pain Score (Numeric/FACES): 5 - Related Data Allergies Allergy/AdvReac Type Severity Reaction Status Date / Time amitriptyline Allergy Cannot Verified 11/30/20 09:51 Remember oxycodone Allergy Syncope Verified 11/30/20 09:51 sulfamethoxazole Allergy Cannot Verified 11/30/20 09:51 [From Bactrim] Remember trimethoprim [From Bactrim] Allergy Cannot Verified 11/30/20 09:51 Remember prednisone AdvReac Nausea Verified 11/30/20 09:51 Home Meds: Home Meds Acyclovir [Zovirax] 400 mg PO BID 10/10/16 [History] DULoxetine HCl [Cymbalta] 60 mg PO BID 10/10/16 [History] Furosemide [Lasix] 40 mg PO BID 10/10/16 [History] Metolazone [Zaroxolyn] 2.5 mg PO MOWEFR 10/10/16 [History] Montelukast [Singulair] 10 mg PO BEDTIME 10/10/16 [History] Potassium Chloride [Klor-Con M20] 40 meq PO TID 10/10/16 [History] clonazePAM [Klonopin] 0.5 mg PO BID PRN 10/10/16 [History] Pantoprazole Sodium [Protonix] 40 mg PO DAILY 10/25/16 [History] Acetaminophen [Tylenol] 650 mg PO Q6HR PRN 02/25/20 [History] Cholecalciferol (Vitamin D3) [Cholecalciferol] 3,000 unit PO DAILY 02/25/20 [History] Fluticasone Furoate [Arnuity Ellipta] 1 puff INH DAILY 02/25/20 [History] Levalbuterol Tartrate [Xopenex HFA] 2 puff INH Q4HR PRN 02/25/20 [History] Linaclotide [Linzess] 290 mcg PO DAILY 02/25/20 [History] Umeclidinium [place] [Incruse Ellipta*] 1 puff INH DAILY 02/25/20 [History] hydrOXYzine HCL [Hydroxyzine HCl] 150 mg PO BEDTIME PRN 02/25/20 [History] traZODone 300 mg PO BEDTIME PRN 02/25/20 [History] Doxycycline Hyclate 100 mg PO DAILY 02/29/20 [History] Levothyroxine Sodium [Synthroid] 150 mcg PO SUMOTHFRSA 02/29/20 [History] Levothyroxine Sodium [Synthroid] 225 mcg PO TUWE 02/29/20 [History] hydrOXYzine HCL [Hydroxyzine HCl] 50 mg PO Q6HR PRN 02/29/20 [History] Levalbuterol Tartrate [Xopenex HFA] 2 inh INH Q4H PRN 06/14/20 [History] Mupirocin Oint [Bactroban Oint] 1 applic TOP TID PRN 06/14/20 [History] Ondansetron [Zofran ODT] 4 mg PO Q4H PRN 06/14/20 [History] Spironolactone [Aldactone] 50 mg PO BID 06/14/20 [History] lamoTRIgine [Lamotrigine] 150 mg PO QPM 06/14/20 [History] Ibuprofen 200 mg PO Q6HR 11/30/20 [History] Lubiprostone 24 mcg PO BID 11/30/20 [History] Magnesium Oxide [Magnesium] 400 mg PO TID 11/30/20 [History] Multivitamin [Multi-Day Vitamins] 1 tab PO DAILY 11/30/20 [History] Rivastigmine [Exelon] 9.5 mg TRDERM DAILY 11/30/20 [History] methocarbamoL [Methocarbamol] 500 mg PO QID 11/30/20 [History] Past Medical History HEENT History: Reports: Cataract, Impaired Vision, Macular Degeneration Other HEENT History: wears glasses; right eye blind, left eye macular degeneration Cardiovascular History: Reports: Arrhythmia, Heart Failure, Heart Murmur, Hypertension, Pacemaker Respiratory History: Reports: Asthma, Pneumonia, Recurrent, Other (See Below) Other Respiratory History: bronchiol cystosis Gastrointestinal History: Reports: Cholelithiasis, Chronic Constipation, Colon Polyp, GERD, Hiatal Hernia Genitourinary History: Reports: None BACK ORDER CLERK History: Reports: Musculoskeletal History: Reports: Neck Pain, Chronic Psychiatric History: Reports: Anxiety, Bipolar, Depression, Psych Hospitalization(s), Schizophrenia, Suicide Attempt Endocrine/Metabolic History: Reports: Hypothyroidism, Vitamin D Deficiency Hematologic History: Reports: B12 Deficiency Immunologic History: Reports: Immunosuppression Oncologic (Cancer) History: Reports: Other (See Below) Other Oncologic History: Follicular lymphoma, non-Hodgkin's Stage III Dermatologic History: Reports: Other (See Below) Other Dermatologic History: itching to skin on abdomen - Infectious Disease History Infectious Disease History: Reports: Chicken Pox, Mumps, Shingles - Past Surgical History HEENT Surgical History: Reports: Cataract Surgery, Laser Surgery, Oral Surgery Cardiovascular Surgical History: Reports: Pacer Respiratory Surgical History: Reports: Other (See Below) Other Respiratory Surgeries/Procedures: Histoplasmosis GI Surgical History: Reports: Appendectomy, Bariatric Procedure, C holecystectomy, Colonoscopy, EGD, Raulito Fundoplication Female Surgical History: Reports: Breast Biopsy, Tubal Ligation, Other (See Below) Other Female Surgeries/Procedures: left breast lump removal-benign Endocrine Surgical History: Reports: Parathyroidectomy Musculoskeletal Surgical History: Reports: Carpal Tunnel, Knee Replacement, Other (See Below) Other Musculoskeletal Surgeries/Procedures:: bilat total knee replacement; right elbow surgery Oncologic Surgical History: Reports: Biopsy of Breast, Lumpectomy Dermatological Surgical History: Reports: None Social & Family History - Tobacco Use Tobacco Use Status *Q: Former Tobacco User Used Tobacco, but Quit: Yes Month/Year Tobacco Last Used: 15 years - Caffeine Use Caffeine Use: Reports: Coffee Caffeine Use Comment: small amount - Recreational Drug Use Recreational Drug Use: No ED ROS GENERAL - Review of Systems Review Of Systems: See Below Constitutional: Reports: No Symptoms HEENT: Reports: No Symptoms Respiratory: Reports: No Symptoms Cardiovascular: Reports: No Symptoms GI/Abdominal: Reports: No Symptoms : Reports: No Symptoms Musculoskeletal: Reports: No Symptoms Skin: Reports: Erythema (of both legs in the mid gonzalez area anteriorly bilat. ) Neurological: Reports: Trouble Speaking (slow, not necessarily worse than usual) Psychiatric: Reports: No Symptoms ED EXAM, NEURO - Physical Exam Exam: See Below Exam Limited By: No Limitations General Appearance: Alert, WD/WN, No Apparent Distress Eye Exam: Bilateral Eye: Normal Inspection Ears: Normal External Exam, Normal Canal, Hearing Grossly Normal, Normal TMs Nose: Normal Inspection, No Blood Throat/Mouth: Normal Inspection, Normal Lips, Normal Oropharynx, No Airway Compromise Head Exam: Atraumatic, Normocephalic Neck: Normal Inspection Respiratory/Chest: No Respiratory Distress, Lungs Clear, Normal Breath Sounds, No Accessory Muscle Use Cardiovascular: Regular Rate, Rhythm, No Edema GI/Abdominal: Normal Bowel Sounds, Soft, Non-Tender, No Distention Neurological: Alert, Normal Mood/Affect, CN II-XII Intact, No Motor/Sensory Deficits, Oriented x 3 Back Exam: Normal Inspection Extremities: Normal Range of Motion, Pedal Edema (bilaterally), Increased Warmth (both lower legs), Redness (both lower legs) Psychiatric: Normal Affect, Normal Mood Skin Exam: Warm, Dry, Intact, No Rash, Erythema (legs bilat), Increased Warmth (legs bilat). No: Lymphangitis, Wound/Incision Course - Vital Signs Last Recorded V/S: Last Vital Signs Temp 36.8 C 11/30/20 09:50 Pulse 74 11/30/20 15:19 Resp 12 11/30/20 13:30 BP 105/52 L 11/30/20 15:19 Pulse Ox 94 L 11/30/20 13:30 - Orders/Labs/Meds Orders: Active Orders 24 hr Category Date Time Status Cardiac Monitoring [RC] .As Directed Care 11/30/20 10:55 Active Acetaminophen [Tylenol Extra Strength] Med 11/30/20 13:05 Active 1,000 mg PO ONETIME Sodium Chloride 0.9% [Normal Saline] 1,000 ml Med 11/30/20 12:00 Active IV ASDIRECTED Sodium Chloride 0.9% [Saline Flush] Med 11/30/20 10:51 Active 10 ml FLUSH ASDIRECTED PRN Saline Lock Insert [OM.PC] Routine Oth 11/30/20 10:51 Ordered Medication Orders Acetaminophen (Acetaminophen 500 Mg Tab) 1,000 mg PO ONETIME NILSON Last Admin: 11/30/20 12:38 Dose: 1,000 mg Documented by: PREILOR Sodium Chloride (Normal Saline) 1,000 mls @ 500 mls/hr IV ASDIRECTED NILSON Last Admin: 11/30/20 12:16 Dose: 500 mls/hr Documented by: YARELY Sodium Chloride (Sodium Chloride 0.9% 10 Ml Syringe) 10 ml FLUSH ASDIRECTED PRN PRN Reason: Keep Vein Open Last Admin: 11/30/20 11:36 Dose: 10 ml Documented by: PREILOR Labs: Laboratory Tests 11/30/20 11/30/20 11/30/20 Range/Units 11:09 11:25 11:25 WBC 8.8 (4.5-11.0) K/uL RBC 3.54 (3.30-5.50) M/uL Hgb 10.7 L (12.0-15.0) g/dL Hct 35.0 L (36.0-48.0) % MCV 99 H (80-98) fL MCH 30 (27-31) pg MCHC 31 L (32-36) % Plt Count 197 (150-400) K/uL Sodium 139 L (140-148) mmol/L Potassium 5.5 H (3.6-5.2) mmol/L Chloride 102 (100-108) mmol/L Carbon Dioxide 32 (21-32) mmol/L Anion Gap 10.5 (5.0-14.0) mmol/L BUN 30 H D (7-18) mg/dL Creatinine 1.4 H (0.6-1.0) mg/dL Est Cr Clr Drug Dosing 32.73 mL/min Estimated GFR (MDRD) 37 L (>60) Glucose 86 (74-106) mg/dL Calcium 8.9 (8.5-10.1) mg/dL Troponin I (0.000-0.056) ng/mL C-Reactive Protein 0.28 (0.0-0.3) mg/dL Urine Color Yellow (YELLOW) Urine Appearance Clear (CLEAR) Urine pH 7.0 (5.0-8.0) Ur Specific [place] 1.020 (1.008-1.030) Urine Protein Negative (NEGATIVE) mg/dL Urine Glucose (UA) Negative (NEGATIVE) mg/dL Urine Ketones Negative (NEGATIVE) mg/dL Urine Occult Blood Negative (NEGATIVE) Urine Nitrite Negative (NEGATIVE) Urine Bilirubin Negative (NEGATIVE) Urine Urobilinogen 0.2 (0.2-1.0) EU/dL Ur Leukocyte Esterase Negative (NEGATIVE) Urine RBC 0-5 (0-5) Urine WBC 0-5 (0-5) Ur Epithelial Cells Not seen Amorphous Sediment Not seen Urine Bacteria Not seen Urine Mucus Not seen 11/30/20 Range/Units 11:25 WBC (4.5-11.0) K/uL RBC (3.30-5.50) M/uL Hgb (12.0-15.0) g/dL Hct (36.0-48.0) % MCV (80-98) fL MCH (27-31) pg MCHC (32-36) % Plt Count (150-400) K/uL Sodium (140-148) mmol/L Potassium (3.6-5.2) mmol/L Chloride (100-108) mmol/L Carbon Dioxide (21-32) mmol/L Anion Gap (5.0-14.0) mmol/L BUN (7-18) mg/dL Creatinine (0.6-1.0) mg/dL Est Cr Clr Drug Dosing mL/min Estimated GFR (MDRD) (>60) Glucose (74-106) mg/dL Calcium (8.5-10.1) mg/dL Troponin I < 0.017 (0.000-0.056) ng/mL C-Reactive Protein (0.0-0.3) mg/dL Urine Color (YELLOW) Urine Appearance (CLEAR) Urine pH (5.0-8.0) Ur Specific [place] (1.008-1.030) Urine Protein (NEGATIVE) mg/dL Urine Glucose (UA) (NEGATIVE) mg/dL Urine Ketones (NEGATIVE) mg/dL Urine Occult Blood (NEGATIVE) Urine Nitrite (NEGATIVE) Urine Bilirubin (NEGATIVE) Urine Urobilinogen (0.2-1.0) EU/dL Ur Leukocyte Esterase (NEGATIVE) Urine RBC (0-5) Urine WBC (0-5) Ur Epithelial Cells Amorphous Sediment Urine Bacteria Urine Mucus Meds: Medications Generic Name Dose Route Start Last Admin Trade Name Freq PRN Reason Stop Dose Admin Acetaminophen 1,000 mg 11/30/20 13:05 11/30/20 12:38 Acetaminophen 500 Mg Tab PO 1,000 mg ONETIME NILSON Administration Sodium Chloride 1,000 mls @ 500 mls/hr 11/30/20 12:00 11/30/20 12:16 Normal Saline IV 500 mls/hr ASDIRECTED NILSON Administration Sodium Chloride 10 ml 11/30/20 10:51 11/30/20 11:36 Sodium Chloride 0.9% 10 Ml Syringe FLUSH 10 ml ASDIRECTED PRN Administration Keep Vein Open Discontinued Medications Generic Name Dose Route Start Last Admin Trade Name Freq PRN Reason Stop Dose Admin Ketorolac Tromethamine 15 mg 11/30/20 12:07 11/30/20 12:15 Ketorolac 30 Mg/Ml Sdv IVPUSH 11/30/20 12:08 15 mg ONETIME ONE Administration Polyethylene Glycol 17 gm 11/30/20 12:06 11/30/20 12:38 Polyethylene Glycol 3350 Powder 17 Gm Packet PO 11/30/20 12:07 17 gm ONETIME ONE Administration - Re-Assessments/Exams Free Text/Narrative Re-Assessment/Exam: 11/30/20 12:58 Discharge planning here to talk with and patient about services. Free Text/Narrative Re-Assessment/Exam: 11/30/20 14:45 Labs suggested dehydration. Was given lunch and a liter of IV fluids. Will walk her with a walker now to see if she is better than at home. is here to security support analyst. Discharge planning also here to observe. Free Text/Narrative Re-Assessment/Exam: 11/30/20 15:25 Had no evidence at any time today during her lengthy ER stay of any focal deficits. Is stronger after fluids and lunch. Was able to walk with a walker per her norm. OK with taking her home. Departure - Departure Time of Disposition: 15:26 Disposition: Home, Self-Care 01 Condition: Fair Clinical Impression: Mild dehydration, Weakness - Discharge Information *PRESCRIPTION DRUG MONITORING PROGRAM REVIEWED*: Not Applicable *COPY OF PRESCRIPTION DRUG MONITORING REPORT IN PATIENT AURELIO: Not Applicable Instructions: Dehydration, Adult, [id number] Referrals: Charu Drew MD [Primary Care Provider] - Forms: ED Department Discharge Additional Instructions: Continue your usual meds. Recheck with your primary care provider as needed. Return if worse. Care Plan Goals: Continue with [facility]. Contact [facility] related to services available under patient's [place] Waiver Program. Sepsis Event Note (ED) - Evaluation Sepsis Screening Result: No Definite Risk - Focused Exam Vital Signs: Vital Signs Temp Pulse Resp BP Pulse Ox 11/30/20 15:19 74 105/52 L 11/30/20 13:30 74 12 106/49 L 94 L 11/30/20 10:00 68 11 L 108/56 L 95 11/30/20 09:50 36.8 C 67 14 109/54 L 95 11/30/20 09:42 36.8 C 67 14 109/54 L 95 - My Orders Last 24 Hours: My Active Orders 11/30/20 10:51 Sodium Chloride 0.9% [Saline Flush] 10 ml FLUSH ASDIRECTED PRN Saline Lock Insert [OM.PC] Routine 11/30/20 10:55 Cardiac Monitoring [RC] .As Directed 11/30/20 12:00 Sodium Chloride 0.9% [Normal Saline] 1,000 ml IV ASDIRECTED 11/30/20 13:05 Acetaminophen [Tylenol Extra Strength] 1,000 mg PO ONETIME - Assessment/Plan Last 24 Hours: My Active Orders 11/30/20 10:51 Sodium Chloride 0.9% [Saline Flush] 10 ml FLUSH ASDIRECTED PRN Saline Lock Insert [OM.PC] Routine 11/30/20 10:55 Cardiac Monitoring [RC] .As Directed 11/30/20 12:00 Sodium Chloride 0.9% [Normal Saline] 1,000 ml IV ASDIRECTED 11/30/20 13:05 Acetaminophen [Tylenol Extra Strength] 1,000 mg PO ONETIME
[2020-11-30] MEDS ORDERED: Sodium Chloride 0.9% 1,000 ML IV SCH (12:00)
[2020-11-30] MEDS ORDERED: Polyethylene Glycol 3350 Powder 17 GM Packet PO ONE (12:06)
[2020-11-30] MEDS ORDERED: Ketorolac 30 MG/ML SDV IVPUSH ONE (12:07)
[2020-11-30] MEDS ORDERED: Acetaminophen 500 MG Tab PO SCH (13:05)
[2020-11-30 13:34] VITALS: PULSE 74
[2020-11-30 15:20] VITALS: BP 105/52
== END 2020-11-30 16:14 | disposition home or self-care (01) ==
LOC: JP.ED 09:35
DX: R53.1 Weakness (principal); E86.0 Dehydration; I11.0 Hypertensive heart disease with heart failure; I50.9 Heart failure, unspecified; E03.9 Hypothyroidism, unspecified; Z99.0 Dependence on aspirator; Z87.891 Personal history of nicotine dependence; Z88.5 Allergy status to narcotic agent; Z88.1 Allergy status to other antibiotic agents; Z88.8 Allergy status to other drugs, medicaments and biological substances
CPT/HCPCS: 36415; 80048; 81001; 84484; 85027; 86140; 96374; 99283; 99284; A9270; J1885; J7030

== ENCOUNTER 2022-06-22 12:18 | Emergency (ER) | payer MEDICARE, OTHER ==
[2022-06-22 12:40] VITALS: PULSE 71
[2022-06-22 13:21] VITALS: BP 103/52
== END 2022-06-22 14:53 | disposition home or self-care (01) ==
LOC: JP.ED 12:18
DX: J47.9 Bronchiectasis, uncomplicated (principal); D80.1 Nonfamilial hypogammaglobulinemia; I11.0 Hypertensive heart disease with heart failure; I50.9 Heart failure, unspecified; Z95.0 Presence of cardiac pacemaker; Z88.5 Allergy status to narcotic agent; Z88.1 Allergy status to other antibiotic agents; Z88.8 Allergy status to other drugs, medicaments and biological substances; Z79.899 Other long term (current) drug therapy
CPT/HCPCS: 99283